=== PATIENT | male | born 1950 | race Caucasian/White ===

== ENCOUNTER 2017-07-29 14:46 | Inpatient (IN) | payer OTHER ==
[2017-07-29] MEDS ORDERED: NA CHLORIDE 0.9% 2,000 ML ONE (15:58)
[2017-07-29] MEDS ORDERED: ACETAMINOPHEN 500 MG TAB ONE (16:09)
[2017-07-29 16:10] LABS: Absolute Lymphocytes (CBC) 1.4 K/uL (0.7-4.9); Absolute Monocytes 0.6 K/uL (0.1-1.3); Absolute Neutrophil 4.7 K/uL (1.8-8.0); Basophils % 0.7 % (0-1.3); Eosinophils % 1.6 % (0-4.4); Hematocrit 41.1 % (39.6-49.0); Lymphocytes % 20.4 % (15.3-44.8); MCH 29.6 pg (27.0-35.0); MCV 88.5 fL (80-100); MPV 8.4 fL (7.6-11.3); Monocytes % 8.4 % (3.3-12.3); RBC Red Blood Cell Count 4.64 M/uL (4.33-5.43)
[2017-07-29 16:14] LABS: Protime INR 0.97
--- NOTE | 2017-07-29 16:22 | RAD REPORT ---
EXAM DESCRIPTION: RAD - Chest Single View - 07/29/2017 4:17 pm CLINICAL HISTORY: Syncope, possible heat exhaustion COMPARISON: None. TECHNIQUE: AP portable chest image was obtained 1609 hours . FINDINGS: Lungs are clear. Heart and vasculature are normal. No measurable pleural effusion and no p neumothorax. No gross bony abnormality seen. No acute aortic findings suspected. IMPRESSION: No acute cardiopulmonary process.
[2017-07-29 16:24] LABS: Albumin 3.7 g/dL (3.2-5.5); Bilirubin Direct 0.1 mg/dL (0-0.2); Bilirubin Total 0.5 mg/dL (0.3-1.2); Protein, Total 6.8 g/dL (6.0-8.3)
[2017-07-29 16:28] LABS: CKMB Creatine Kinase MB 2.1 ng/ml (0.3-4.0)
--- NOTE | 2017-07-29 16:52 | RAD REPORT ---
EXAM DESCRIPTION: CT - Head Brain Wo Cont - 07/29/2017 4:27 pm CLINICAL HISTORY: Syncope, possible heat exhaustion COMPARISON: None. TECHNIQUE: Axial 5 mm thick images of the head were obtained without IV contrast. All CT scans are performed using dose optimization technique as appropriate and may include automated exposure control or mA/KV adjustment according to patient size. FINDINGS: No intracranial hemorrhage, mass, edema or shift of mid-line structures. No acute infarcti on changes seen. No abnormal extra-axial fluid collections. Ventricles are normal. Arterial and physi ologic calcifications are present. Punctate calcification in the right parietal lobe probably from ol d infection. Patient has atrophy and chronic ischemic change. Ventricles are in proportion to volume loss. Round hyperdensity in the right posterior cranial fossa (image /) is believed be part of misty ous sinus and not a mass. Mastoid air cells and visualized portions of the paranasal sinuses are clear. No acute bony findings. IMPRESSION: Mild atrophy and chronic ischemic change. No acute intracranial finding.
--- NOTE | 2017-07-29 17:00 | EKG ---
Test Date: 2017-07-29 Test Time: 15:40:08 Ssis Architect: KLAUDIA MEASUREMENT RESULTS: Intervals: Rate: 78 GA: 146 QRSD: 90 QT: 376 QTc: 428 [place]: P: 55 GA: 146 QRS: 5 T: 33 INTERPRETIVE STATEMENTS: Normal sinus rhythm Nonspecific T wave abnormality Abnormal ECG No previous ECG available for comparison Electronically Signed On 07-29-17 16:59:53 CDT by Navjot Goldstein
--- NOTE | 2017-07-29 17:13 | EDPHYS ---
Physician Documentation [facility] Name: Jarrett Oslulivan Sr Age: 67 yrs Sex: Male : 1950 Arrival Date: 07/29/2017 Time: 14:56 Bed 18 Private MD: ED Physician Hoang Welch HPI: 07/29 17:09 This 67 yrs old Male presents to ER via EMS with complaints of Near Syncope. merrick 17:09 The patient has experienced near-syncope, almost passed out, felt dizzy, felt generally merrick weak. Onset: The symptoms/episode began/occurred just prior to arrival. Duration: The patient has had multiple episodes, that last 5 second(s). Context: the episode(s) was witnessed, by co-worker(s), occurred at home. Associated injury: The patient did not suffer any apparent associated injury. Associated signs and symptoms: Pertinent positives: dizziness, headache, weakness. Current symptoms: headache. The patient has not experienced similar symptoms in the past. Historical: - Allergies: 15:10 No Known Allergies; ae1 - Home Meds: 15:10 Plavix 75 mg Oral tab 1 tab once daily [Active]; gabapentin 400 mg oral cap 1 cap 3 ae1 times per day [Active]; atorvastatin 40 mg oral tab 1 tab once daily [Active]; amlodipine 10 mg tab 1 tab once daily [Active]; amitriptyline 25 mg Oral tab 1 tab once daily [Active]; Isosorbide Mononitrate Oral [Active]; ropinirole 3 mg oral tab 1 tab q day [Active]; - PMHx: 15:10 Hyperlipidemia; Hypertension; ae1 - Immunization history:: Flu vaccine is up to date. - Social history:: Smoking status: Patient/guardian denies using tobacco. - Ebola Screening: : Patient denies travel to an Ebola-affected area in the 21 days before illness onset. ROS: 17:09 Constitutional: Negative for fever, chills, and weight loss, Eyes: Negative for injury, merrick pain, redness, and discharge, ENT: Negative for injury, pain, and discharge, Neck: Negative for injury, pain, and swelling, Cardiovascular: Negative for chest pain, palpitations, and edema, Respiratory: Negative for shortness of breath, cough, wheezing, and pleuritic chest pain, Abdomen/GI: Negative for abdominal pain, nausea, vomiting, diarrhea, and constipation, Back: Negative for injury and pain, : Negative for injury, bleeding, discharge, and swelling, MS/Extremity: Negative for injury and deformity, Skin: Negative for injury, rash, and discoloration, Neuro: Negative for headache, weakness, numbness, tingling, and seizure, Psych: Negative for depression, anxiety, suicide ideation, homicidal ideation, and hallucinations, Allergy/Immunology: Negative for hives, rash, and allergies, Endocrine: Negative for neck swelling, polydipsia, polyuria, polyphagia, and marked weight changes, Hematologic/Lymphatic: Negative for swollen nodes, abnormal bleeding, and unusual bruising. Exam: 17:09 Constitutional: This is a well developed, well nourished patient who is awake, alert, merrick and in no acute distress. Head/Face: Normocephalic, atraumatic. Eyes: Pupils equal round and reactive to light, extra-ocular motions intact. Lids and lashes normal. Conjunctiva and sclera are non-icteric and not injected. Cornea within normal limits. Periorbital areas with no swelling, redness, or edema. ENT: Nares patent. No nasal discharge, no septal abnormalities noted. Tympanic membranes are normal and external auditory canals are clear. Oropharynx with no redness, swelling, or masses, exudates, or evidence of obstruction, uvula midline. Mucous membranes moist. Neck: Trachea midline, no thyromegaly or masses palpated, and no cervical lymphadenopathy. Supple, full range of motion without nuchal rigidity, or vertebral point tenderness. No Meningismus. Chest/axilla: Normal chest wall appearance and motion. Nontender with no deformity. No lesions are appreciated. Cardiovascular: Regular rate and rhythm with a normal S1 and S2. No gallops, murmurs, or rubs. Normal PMI, no JVD. No pulse deficits. Respiratory: Lungs have equal breath sounds bilaterally, clear to auscultation and percussion. No rales, rhonchi or wheezes noted. No increased work of breathing, no retractions or nasal flaring. Abdomen/GI: Soft, non-tender, with normal bowel sounds. No distension or tympany. No guarding or rebound. No evidence of tenderness throughout. Back: No spinal tenderness. No costovertebral tenderness. Full range of motion. Skin: Warm, dry with normal turgor. Normal color with no rashes, no lesions, and no evidence of cellulitis. MS/ Extremity: Pulses equal, no cyanosis. Neurovascular intact. Full, normal range of motion. Neuro: Awake and alert, GCS 15, oriented to person, place, time, and situation. Cranial nerves II-XII grossly intact. Motor strength 5/5 in all extremities. Sensory grossly intact. Cerebellar exam normal. Normal gait. Psych: Awake, alert, with orientation to person, place and time. Behavior, mood, and affect are within normal limits. 17:09 : CVA tenderness, is absent, Male external genitalia: normal, Bladder: is normal. Vital Signs: 14:56 BP 148 / 78; Pulse 86; Resp 19; Pulse Ox 96% on R/A; Weight 102.97 kg (R); Pain 6/10; ae1 15:29 Temp 98.3(O); ae1 16:57 BP 151 / 75; Pulse 74; Resp 21; Pulse Ox 100% on R/A; ae1 18:51 BP 163 / 92; Pulse 72; Resp 16; Pulse Ox 99% on R/A; ae1 19:25 BP 171 / 89; Pulse 69; Resp 18; Pulse Ox 99% ; ea 20:35 BP 157 / 90; Pulse 67; Resp 18; Pulse Ox 99% on R/A; Pain 0/10; ea 21:26 BP 144 / 71; Pulse 72; Resp 18; Temp 98(O); Pulse Ox 99% on R/A; Pain 0/10; ea MDM: 14:59 Patient medically screened. [facility] 17:09 Data reviewed: vital signs, nurses notes, lab test result(s), EKG, radiologic studies, [facility] CT scan, plain films. 07/29 15:35 Order name: Basic Metabolic Panel; Complete Time: 17:20 ae1 07/29 15:35 Order name: BNP; Complete Time: 17:20 ae1 07/29 15:35 Order name: CBC with Diff; Complete Time: 17:20 ae1 07/29 15:35 Order name: Ckmb; Complete Time: 17:20 ae1 07/29 15:35 Order name: CPK; Complete Time: 17:20 ae1 07/29 15:35 Order name: LFT's; Complete Time: 17:20 ae1 07/29 15:35 Order name: Magnesium; Complete Time: 17:20 ae07/29 15:35 Order name: PT-INR; Complete Time: 17:20 07/29 15:35 Order name: Ptt, Activated; Complete Time: 17:20 ae07/29 15:35 Order name: Troponin (emerg Dept Use Only); Complete Time: 17:20 07/29 15:35 Order name: XRAY Chest (1 view); Complete Time: 17:20 ae07/29 15:54 Order name: CT Head Brain wo Cont; Complete Time: 17:20 iw 07/29 18:48 Order name: Urine Dipstick--Ancillary (enter results) bd 07/29 19:05 Order name: EDPA 07/29 15:35 Order name: EKG; Complete Time: 15:36 07/29 15:35 Order name: Cardiac monitoring; Complete Time: 15:35 07/29 15:35 Order name: EKG - Nurse/Tech; Complete Time: 16:02 ae07/29 15:35 Order name: IV Saline Lock; Complete Time: 15:35 07/29 15:35 Order name: Labs collected and sent; Complete Time: 16:02 07/29 15:35 Order name: O2 Per Protocol; Complete Time: 15:35 07/29 15:35 Order name: O2 Sat Monitoring; Complete Time: 15:35 07/29 15:35 Order name: Urine Dipstick-Ancillary (obtain specimen); Complete Time: 18:51 07/29 17:18 Order name: CONS Physician Consult EDPA Administered Medications: 16:01 Drug: NS 0.9% 1000 ml Route: IV; Rate: 1 bolus; Site: right antecubital; ae1 18:19 Follow up: IV Status: Completed infusion ae1 16:02 Drug: NS 0.9% 1000 ml Route: IV; Rate: 1 bolus; Site: right antecubital; ae1 18:19 Follow up: IV Status: Completed infusion ae1 16:12 Drug: Tylenol 1000 mg Route: PO; ae1 18:19 Follow up: Response: Pain is decreased ae1 Point of Care Testing: Blood Glucose: 15:29 Blood Glucose: 105 mg/dL; ae1 Ranges: Critical Glucose Levels:Adult <50 mg/dl or >400 mg/dl <40 mg/dl or >180 mg/dl Disposition: 07/29/17 17:12 Hospitalization ordered by Joe Boogie for Observation. Preliminary diagnosis is Syncope and collapse. - Bed requested for Telemetry/MedSurg (observation). - Status is Observation. ea - Condition is Fair. - Problem is new. - Symptoms have improved. UTI on Admission? No Signatures: Dispatcher [employer] EDCourtney Miles RN RN kl Anderson, Corey, MD MD cha Elliott, Andrea, RN RN ae1 Laxmi Mcdonald RN RN ea Corrections: (The following items were deleted from the chart) 19:25 17:12 Hospitalization Ordered by Joe Boogie DO for Observation. Preliminary diagnosis is Syncope and collapse. Bed requested for Telemetry/MedSurg (observation). Status is Observation. Condition is Fair. Problem is new. Symptoms have improved. UTI on Admission? No. merrick 21:28 19:25 07/29/2017 17:12 Hospitalization Ordered by Joe Boogie DO for Observation. ea Preliminary diagnosis is Syncope and collapse. Bed requested for Telemetry/MedSurg (observation). Status is Observation. Condition is Fair. Problem is new. Symptoms have improved. UTI on Admission? No. zoya
--- NOTE | 2017-07-29 17:13 | ER ---
Nurse's Notes 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 No LOC and denies striking head. Patient reports a headache. Transition of care: patient was not received from another setting of care. Onset of symptoms was July 29, 2017 at 14:00. Risk Assessment: Do you want to hurt yourself or someone else? Patient reports no desire to harm self or others. Initial Sepsis Screen: Does the patient meet any 2 criteria? No. Patient's initial sepsis screen is negative. Does the patient have a suspected source of infection? No. Patient's initial sepsis screen is negative. Care prior to arrival: IV initiated. 20 GA, in the right antecubital area. 15:00 Method Of Arrival: EMS: [facility] ae1 15:00 Acuity: PADMINI 3 ae1 Triage Assessment: 15:00 General: Appears in no apparent distress. uncomfortable, Behavior is cooperative, ae1 anxious. Pain: Complains of pain in head and back of head Pain currently is 3 out of 10 on a pain scale. at worst was 8 out of 10 on a pain scale. EENT: wears glasses. Neuro: Level of Consciousness is awake, alert, obeys commands, Oriented to person, place, time, situation. Cardiovascular: Heart tones S1 S2 present. Respiratory: Reports shortness of breath on exertion Airway is patent Respiratory effort is even, unlabored, Respiratory pattern is regular, symmetrical, Breath sounds are clear bilaterally. GI: Abdomen is round Bowel sounds present X 4 quads. : No signs and/or symptoms were reported regarding the genitourinary system. Urine is clear, amberly urine. Derm: Skin is clammy, diaphoretic, Skin is pale. Musculoskeletal: No signs and/or symptoms reported regarding the musculoskeletal system. Historical: - Allergies: 15:10 No Known Allergies; ae1 - Home Meds: 15:10 Plavix 75 mg Oral tab 1 tab once daily [Active]; gabapentin 400 mg oral cap 1 cap 3 ae1 times per day [Active]; atorvastatin 40 mg oral tab 1 tab once daily [Active]; amlodipine 10 mg tab 1 tab once daily [Active]; amitriptyline 25 mg Oral tab 1 tab once daily [Active]; Isosorbide Mononitrate Oral [Active]; ropinirole 3 mg oral tab 1 tab q day [Active]; - PMHx: 15:10 Hyperlipidemia; Hypertension; ae1 - Immunization history:: Flu vaccine is up to date. - Social history:: Smoking status: Patient/guardian denies using tobacco. - Ebola Screening: : Patient denies travel to an Ebola-affected area in the 21 days before illness onset. Screenin:25 Abuse screen: Denies threats or abuse. Denies injuries from another. Nutritional ae1 screening: No deficits noted. Tuberculosis screening: No symptoms or risk factors identified. Fall Risk Fall in past 12 months (25 points). No secondary diagnosis (0 pts). IV access (20 points). Ambulatory Aid- None/Bed Rest/Nurse Assist (0 pts). Gait- Normal/Bed Rest/Wheelchair (0 pts) Mental Status- Oriented to own ability (0 pts). Assessment: 18:51 Reassessment: Patient appears in no apparent distress at this time. Patient denies pain ae1 at this time. Patient states feeling better. Patient states symptoms have improved. 19:24 Reassessment: Patient appears in no apparent distress at this time. Patient and/or ae1 family updated on plan of care and expected duration. Pain level reassessed. Patient states symptoms have improved. Pain: Denies pain. 19:25 General: Appears in no apparent distress. Behavior is calm, cooperative, appropriate ea for age. Pain: Denies pain. Neuro: Level of Consciousness is awake, alert, obeys commands, Oriented to person, place, time, situation. Cardiovascular: Heart tones S1 S2 present Patient's skin is warm and dry. Respiratory: Airway is patent Respiratory effort is even, unlabored, Respiratory pattern is regular, symmetrical, Breath sounds are clear bilaterally. GI: No signs and/or symptoms were reported involving the gastrointestinal system. : No signs and/or symptoms were reported regarding the genitourinary system. EENT: No signs and/or symptoms were reported regarding the EENT system. Derm: Skin is pink, warm \\T\\ dry. Musculoskeletal: No signs and/or symptoms reported regarding the musculoskeletal system. 20:55 Reassessment: Patient and/or family updated on plan of care and expected duration. Pain ea level reassessed. Patient denies pain at this time. Patient states feeling better. Patient states symptoms have improved. 21:25 Reassessment: Patient and/or family updated on plan of care and expected duration. Pain ea level reassessed. Report given to Lilo DARLING on second floor. Patient denies pain at this time. Patient states feeling better. Patient states symptoms have improved. Vital Signs: 14:56 BP 148 / 78; Pulse 86; Resp 19; Pulse Ox 96% on R/A; Weight 102.97 kg (R); Pain 6/10; ae1 15:29 Temp 98.3(O); ae1 16:57 BP 151 / 75; Pulse 74; Resp 21; Pulse Ox 100% on R/A; ae1 18:51 BP 163 / 92; Pulse 72; Resp 16; Pulse Ox 99% on R/A; ae1 19:25 BP 171 / 89; Pulse 69; Resp 18; Pulse Ox 99% ; ea 20:35 BP 157 / 90; Pulse 67; Resp 18; Pulse Ox 99% on R/A; Pain 0/10; ea 21:26 BP 144 / 71; Pulse 72; Resp 18; Temp 98(O); Pulse Ox 99% on R/A; Pain 0/10; ea ED Course: 14:56 Patient arrived in ED. ae1 14:59 Hoang Welch MD is Attending Physician. merrick 15:04 Triage completed. ae1 15:04 Placed in gown. Bed in low position. Call light in reach. Side rails up X2. Cardiac ae1 monitor on. Pulse ox on. NIBP on. 15:04 Arm band placed on right wrist. ae1 15:29 Sandip Dickey, PHONG is Primary Nurse. ae1 15:30 EKG completed in triage. Results shown to . ae1 15:45 EKG done, by paintless dent repair technician. reviewed by Hoang Welch MD. at1 16:[address] oh 16:15 X-ray completed. Portable x-ray completed in exam room. Patient tolerated procedure kc2 well. 16:16 XRAY Chest (1 view) In Process Unspecified. EDMS 16:27 CT Head Brain wo Cont In Process Unspecified. EDMS 17:12 Joe Boogie DO is Hospitalizing Provider. [facility] 20:05 No provider procedures requiring assistance completed. Patient admitted, IV remains in ea place. 20:23 Primary Nurse role handed off by Sandip Dickey, RN rg2 21:25 Laxmi Mcdonald, PHONG is Primary Nurse. ea Administered Medications: 16:01 Drug: NS 0.9% 1000 ml Route: IV; Rate: 1 bolus; Site: right antecubital; ae1 18:19 Follow up: IV Status: Completed infusion ae1 16:02 Drug: NS 0.9% 1000 ml Route: IV; Rate: 1 bolus; Site: right antecubital; ae1 18:19 Follow up: IV Status: Completed infusion ae1 16:12 Drug: Tylenol 1000 mg Route: PO; ae1 18:19 Follow up: Response: Pain is decreased ae1 Point of Care Testing: Blood Glucose: 15:29 Blood Glucose: 105 mg/dL; ae1 Ranges: Output: 19:06 Urine: 300ml (Voided); Total: 300ml. ae1 Outcome: 17:12 Decision to Hospitalize by Provider. merrick 20:05 Instructed on the need for admit. ea 21:27 Admitted to Med/surg accompanied by tech, via stretcher, with chart, Report called to leigh ann Nagy RN 21:27 Condition: stable 21:28 Patient left the ED. ea Signatures: Dispatcher [employer] EDMS Heather Villagomez rg2 Hoang Welch MD MD cha gonzales, Amanda, onboarding specialist EKG Tat1 Sara Craig kc2 Sandip Dickey, RN RN ae1 Mathieu Weston Elena, PHONG DARLING ea
[2017-07-29] MEDS ORDERED: ONDANSETRON 4 MG/2 ML VIAL IV PRN (17:55)
[2017-07-29] MEDS: NA CHLORIDE 0.9% 1,000 ML IV SCH ×2 (18:00→22:09)
--- NOTE | 2017-07-29 18:07 | P.HP ---
Certification for Inpatient Patient admitted to: Observation With expected LOS: <2 Midnights Patient will require the following post-hospital care: None Practitioner: I am a practitioner with admitting privileges, knowledge of patient current condition, hospital course, and medical plan of care. Services: Services provided to patient in accordance with Admission requirements found in Title 42 Section 412.3 of the Code of Federal Regulations Patient History Date of Service: 07/29/17 Primary Care Provider: Natalie Croft([place]); Cardiology-Dr. Nagy Reason for admission: Near syncope History of Present Illness: 67-year-old male presented emergency room with a near syncopal episode. 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 He has been trying to hydrate. He apparently went to a local [employer] store. While at the store he felt lightheaded and almost passed out. After that time he came to the emergent room to get evaluated. He did report some chest pain in the emergency room. He denied any significant shortness of breath. No nausea or vomiting noted. In the ER patient evaluated. Blood pressure stable. CBC unremarkable. Sodium 141, potassium 4.0. CK of 271. Troponin less than 0.03, creatinine 1.08 with a GFR 68. Glucose 122. CT of the head unremarkable for any acute changes. Chest x-ray also unremarkable. Patient was given IV fluids urgency room. The patient will be admitted for observation. When I saw the patient ER, he appeared stable. Family at bedside. He denied any significant chest pain at that time. Patient with history of CAD, hyperlipidemia, hypertension. Patient reports that this is happen in the past whenever he gets severely dehydrated. Home medications list reviewed: Yes - Past Medical/Surgical History Diabetic: No -: Hypertension -: Hyperlipidemia -: CAD -: Neck surgery Psychosocial/ Personal History: The patient is . He has several children. - Family History Father -: Heart disease Mother -: Heart disease, Diabetes - Social History Smoking Status: Never smoker Alcohol use: No CD- Drugs: No Caffeine use: Yes Place of Residence: Home Review of Systems General: Weakness, Malaise, As per HPI Eyes: Unremarkable ENT: Unremarkable Respiratory: Unremarkable Cardiovascular: Chest Pain, As per HPI Gastrointestinal: Unremarkable Genitourinary: Unremarkable Musculoskeletal: Unremarkable Integumentary: Unremarkable Neurological: As per HPI Lymphatics: Unremarkable Physical Examination - Physical Exam General: Alert, In no apparent distress, Oriented x3, Cooperative HEENT: Atraumatic, Normocephalic, PERRLA, Other (Dry mucous membranes) Neck: Supple, No Thyromegaly Respiratory: Clear to auscultation bilaterally, Normal air movement Cardiovascular: Normal pulses, Regular rate/rhythm Gastrointestinal: Normal bowel sounds, Soft and benign, Non-distended, No tenderness, No masses, No rebound, No guarding Musculoskeletal: No erythema, No tenderness, No warmth Integumentary: No tenderness/swelling, No erythema, No warmth, No cyanosis Neurological: Normal speech, Normal strength at 5/5 x4 extr, Normal tone, Normal affect Lymphatics: No axilla or inguinal lymphadenopathy - Studies Laboratory Data (last 24 hrs) 07/29/17 15:25: PT 11.5, INR 0.97, APTT 28.0 07/29/17 15:25: WBC 6.9, Hgb 13.7, Hct 41.1, Plt Count 177 07/29/17 15:25: B-Natriuretic Peptide 11 07/29/17 15:25: Sodium 141, Potassium 4.0, BUN 17, Creatinine 1.08, Glucose 122 H, Magnesium 2.0, Total Bilirubin 0.5, AST 20, ALT 19, Alkaline Phosphatase 68 Assessment and Plan - Problems (Diagnosis) (1) Near syncope Current Visit: Yes Status: Acute Plan: Suspect related to dehydration and heat exhaustion. Patient given IV fluids. Will continue with IV fluids and monitor closely. Will monitor cardiac enzymes as the patient reported some chest pain. He is without chest pain at this time. Patient with history of hypertension and CAD. Will consult cardiology to further evaluate. Will also order echocardiogram and carotid Doppler. Will monitor cardiac enzymes. (2) Dehydration Current Visit: Yes Status: Acute Plan: Continue with IV fluids. Will monitor electrolyte (3) Heat exhaustion Current Visit: Yes Status: Acute Plan: Continue with IV fluids. Qualifiers: Encounter type: initial encounter Qualified Code(s): T67.5XXA - Heat exhaustion, unspecified, initial encounter (4) Hypertension Current Visit: Yes Status: Chronic Plan: Continue with home medication. Qualifiers: Hypertension type: essential hypertension Qualified Code(s): I10 - Essential (primary) hypertension (5) Hyperlipidemia Current Visit: Yes Status: Chronic Plan: Continue with home medication Qualifiers: Hyperlipidemia type: unspecified Qualified Code(s): E78.5 - Hyperlipidemia , unspecified (6) CAD (coronary artery disease) Current Visit: Yes Status: Chronic Plan: Continue as above. (7) Chest pain Current Visit: Yes Status: Acute Plan: Chest pain was brief. He is without chest pain at this time. Will continue as above. Cardiology consulted. Qualifiers: Chest pain type: unspecified Qualified Code(s): R07.9 - Chest pain, unspecified Discharge Plan: Home Plan to discharge in: 24 Hours - Advance Directives Does patient have a Living Will: No Does patient have a Durable POA for Healthcare: No - Code Status/Comfort Care Code Status Assessed: Yes Time Spent Managing Pts Care (In Minutes): 55
--- NOTE | 2017-07-29 19:05 | RAD REPORT ---
EXAM DESCRIPTION: SAMIRA - ELISA - 07/29/2017 6:54 pm CLINICAL HISTORY: Syncope COMPARISON: None. TECHNIQUE: Real-time sonographic evaluation of both carotid systems was performed. Doppler interroga tion was performed with waveform tracing bilaterally. FINDINGS: Normal high resistance waveforms are noted in both external carotid arteries. The common c arotid arteries and internal carotid arteries show normal low resistance waveforms. The right mid common carotid artery demonstrates soft and hard plaque. The left common carotid artery demonstrates mild soft plaque. The proximal right ICA demonstrates hard plaque with a peak systolic velocity of a maximum of 171 cm/second. The left internal carotid artery demonstrates prominent hard plaque with mildly elevated peak systolic velocity measurement of 135 cm/second. Right ICA to CCA rat io is 3.6. Left ICA CCA ratio is 1.5. Antegrade flow seen in both vertebral arteries. IMPRESSION: Moderate bilateral carotid system plaquing. Moderate stenosis involving the proximal right ICA estimated at 50-70%. MR angiography of the neck vessels may be of value for further assessment.
[2017-07-29] MEDS ORDERED: ATORVASTATIN 40 MG TAB PO SCH (21:00)
[2017-07-29] MEDS: ENOXAPARIN 40 MG/0.4 ML SQ SCH (22:09)
[2017-07-30 02:32] LABS: CKMB Creatine Kinase MB 1.6 ng/ml (0.3-4.0)
[2017-07-30] MEDS: ACETAMINOPHEN 500 MG TAB PO PRN ×2 (03:29→13:27)
[2017-07-30] MEDS: NA CHLORIDE 0.9% 1,000 ML IV SCH ×3 (03:29→20:40)
[2017-07-30 03:59] LABS: Urine Appearance CLEAR; Urine Bilirubin NEGATIVE (NEG); Urine Blood NEGATIVE (NEG); Urine Color YELLOW; Urine Glucose NEGATIVE (NEG); Urine Protein NEGATIVE (NEG); Urine Specific Gravity 1.025 (1.005-1.030)
[2017-07-30 04:09] LABS: Urine Microscopic Reflex NO UMIC
[2017-07-30 06:38] LABS: Absolute Lymphocytes (CBC) 1.8 K/uL (0.7-4.9); Absolute Monocytes 0.6 K/uL (0.1-1.3); Absolute Neutrophil 4.3 K/uL (1.8-8.0); Basophils % 0.5 % (0-1.3); Eosinophils % 2.4 % (0-4.4); Hematocrit 39.3 % (39.6-49.0); Lymphocytes % 25.7 % (15.3-44.8); MCH 29.8 pg (27.0-35.0); MCV 89.3 fL (80-100); MPV 8.8 fL (7.6-11.3); Monocytes % 8.4 % (3.3-12.3)
[2017-07-30 07:19] LABS: Magnesium 1.8 mg/dL (1.8-2.5); Potassium 4.1 mEq/L (3.6-5.0); Thyroid Stimulating Hormone 2.71 uIU/mL (0.34-5.60)
[2017-07-30] MEDS ORDERED: MAGNESIUM SULFATE 1 gm IVPB 1 GM/100 ML BAG IV ONE (08:00)
[2017-07-30] MEDS: ENOXAPARIN 40 MG/0.4 ML SQ SCH (08:23)
[2017-07-30] MEDS: ISOSORBIDE MONO SR 30 MG TAB PO SCH (08:23)
[2017-07-30] MEDS: PANTOPRAZOLE 40MG TABLET PO SCH (08:23)
[2017-07-30] MEDS ORDERED: AMLODIPINE 5 MG TAB PO SCH (09:00)
[2017-07-30] MEDS ORDERED: CLOPIDOGREL 75 MG TABLET PO SCH (09:00)
--- NOTE | 2017-07-30 10:45 | P.DS ---
Admission Date: 07/29/17 Discharge Date: 07/30/17 Primary Care Provider: Natalie Croft([place]); Cardiology-Dr. Nagy Disposition: ROUTINE DISCHARGE Discharge Condition: GOOD Reason for Admission: Near syncope Consultations: Cardiology-Dr. Orr Procedures: MRI/MRA brain: Carotid Doppler: FINDINGS: Normal high resistance waveforms are noted in both external carotid arteries. The common carotid arteries and internal carotid arteries show normal low resistance waveforms. The right mid common carotid artery demonstrates soft and hard plaque. The left common carotid artery demonstrates mild soft plaque. The proximal right ICA demonstrates hard plaque with a peak systolic velocity of a maximum of 171 cm/ second. The left internal carotid artery demonstrates prominent hard plaque with mildly elevated peak systolic velocity measurement of 135 cm/second. Right ICA to CCA ratio is 3.6. Left ICA CCA ratio is 1.5. Antegrade flow seen in both vertebral arteries. IMPRESSION: Moderate bilateral carotid system plaquing. Moderate stenosis involving the proximal right ICA estimated at 50-70%. - Problems (1) Near syncope Onset Date: 07/30/17 Current Visit: Yes Status: Acute (2) Dehydration Onset Date: 07/30/17 Current Visit: Yes Status: Acute (3) Heat exhaustion Onset Date: 07/30/17 Current Visit: Yes Status: Acute Qualifiers: Encounter type: initial encounter Qualified Code(s): T67.5XXA - Heat exhaustion, unspecified, initial encounter (4) Hypertension Onset Date: 07/30/17 Current Visit: Yes Status: Chronic Qualifiers: Hypertension type: essential hypertension Qualified Code(s): I10 - Essential (primary) hypertension (5) Hyperlipidemia Onset Date: 07/30/17 Current Visit: Yes Status: Chronic Qualifiers: Hyperlipidemia type: unspecified Qualified Code(s): E78.5 - Hyperlipidemia , unspecified (6) CAD (coronary artery disease) Onset Date: 07/30/17 Current Visit: Yes Status: Chronic Qualifiers: Coronary Disease-Associated Artery/Lesion type: unspecified vessel or lesion type [place] vs. transplanted heart: unspecified whether [place] or transplanted heart Associated angina: angina presence unspecified Qualified Code(s): I25.10 - Atherosclerotic heart disease of [place] coronary artery without angina pectoris (7) Chest pain Onset Date: 07/30/17 Current Visit: Yes Status: Acute Qualifiers: Chest pain type: unspecified Qualified Code(s): R07.9 - Chest pain, unspecified (8) Carotid arterial disease Current Visit: Yes Status: Acute Qualifiers: Laterality: right Qualified Code(s): I77.9 - Disorder of arteries and arterioles, unspecified (9) Neuropathy Current Visit: Yes Status: Chronic Brief History of Present Illness: 67-year-old male presented emergency room with a near syncopal episode. 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 He has been trying to hydrate. He apparently went to a local [employer] store. While at the store he felt lightheaded and almost passed out. After that time he came to the emergent room to get evaluated. He did report some chest pain in the emergency room. He denied any significant shortness of breath. No nausea or vomiting noted. In the ER patient evaluated. Blood pressure stable. CBC unremarkable. Sodium 141, potassium 4.0. CK of 271. Troponin less than 0.03, creatinine 1.08 with a GFR 68. Glucose 122. CT of the head unremarkable for any acute changes. Chest x-ray also unremarkable. Patient was given IV fluids urgency room. The patient will be admitted for observation. When I saw the patient ER, he appeared stable. Family at bedside. He denied any significant chest pain at that time. Patient with history of CAD, hyperlipidemia, hypertension. Patient reports that this is happen in the past whenever he gets severely dehydrated. Hospital Course: Patient did well in the course of his stay. Patient had no further near syncopal episode. This was likely from dehydration. Patient received IV fluids. Patient also evaluated by Cardiology. No cardiac intervention was needed. Carotid Doppler showed proximal right ICA stenosis about 50-70%. No intervention is needed at this time. Recommendations for the patient follow up with cardiology to further monitor. If this worsens patient may require intervention. MRI/MRA brain done. This was unremarkable. At discharge patient will continue with Plavix 75 mg 1 pill once daily and aspirin 81 mg daily. Recommendation is the patient to limit physical activities outside especially when heat is elevated. Patient has hypertension. This remained stable. Patient will continue with his medication-Norvasc 10 mg daily. Recommendation is to maintain blood pressures less 150/80. Further adjustment can be done by his PCP. Patient has hyperlipidemia. This remained stable. Patient will continue with his medication-Lipitor 40 mg 1 pill daily. Patient has a history of CAD. Patient will continue with Imdur 30 mg daily. Patient with history of neuropathy and restless leg syndrome. He will continue with his medications including Elavil, Neurontin and Requip. Vital Signs/Physical Exam: Temp Pulse Resp BP Pulse Ox 98.1 F 66 16 162/79 H 97 07/30/17 08:00 07/30/17 08:00 07/30/17 08:00 07/30/17 08:00 07/30/17 08:00 General: Alert, In no apparent distress, Oriented x3, Cooperative HEENT: Atraumatic, Mucous membr. moist/pink Neck: Supple Respiratory: Clear to auscultation bilaterally, Normal air movement Cardiovascular: Normal pulses, Regular rate/rhythm Gastrointestinal: Normal bowel sounds, Soft and benign, Non-distended, No tenderness, No masses, No rebound, No guarding Musculoskeletal: No erythema, No tenderness, No warmth Integumentary: No tenderness/swelling, No erythema, No warmth, No cyanosis Neurological: Normal speech, Normal strength at 5/5 x4 extr, Normal tone, Normal affect Lymphatics: No axilla or inguinal lymphadenopathy Laboratory Data at Discharge: WBC 6.8 K/uL (4.3-10.9) 07/30/17 05:48 Hgb 13.1 g/dL (13.6-17.9) L 07/30/17 05:48 Hct 39.3 % (39.6-49.0) L 07/30/17 05:48 Plt Count 181 K/uL (152-406) 07/30/17 05:48 PT 11.5 SECONDS (9.5-12.5) 07/29/17 15:25 INR 0.97 07/29/17 15:25 APTT 28.0 SECONDS (24.3-36.9) 07/29/17 15:25 Sodium 141 mEq/L (135-145) 07/30/17 05:48 Potassium 4.1 mEq/L (3.6-5.0) 07/30/17 05:48 BUN 12 mg/dL (6-20) 07/30/17 05:48 Creatinine 0.91 mg/dL (0.61-1.24) 07/30/17 05:48 Glucose 97 mg/dL (65-120) 07/30/17 05:48 Magnesium 1.8 mg/dL (1.8-2.5) 07/30/17 05:48 Total Bilirubin 0.5 mg/dL (0.3-1.2) 07/29/17 15:25 AST 20 IU/L (10-42) 07/29/17 15:25 ALT 19 IU/L (10-60) 07/29/17 15:25 Alkaline Phosphatase 68 IU/L (42-121) 07/29/17 15:25 Troponin I < 0.03 ng/mL (<0.03) 07/30/17 01:31 B-Natriuretic Peptide 11 pg/ml (<=100) 07/29/17 15:25 Triglycerides 85 mg/dL (35-160) 07/30/17 05:48 Cholesterol 116 mg/dL (<200) 07/30/17 05:48 HDL Cholesterol 38 mg/dL (27-67) 07/30/17 05:48 Cholesterol/HDL Ratio 3.05 07/30/17 05:48 Home Medications: Amitriptyline [Elavil*] 25 mg PO DAILY 07/29/17 Amlodipine [Norvasc*] 10 mg PO DAILY 07/29/17 Aspirin [Melissa Chewable Aspirin] 1 tab PO DAILY 07/29/17 Atorvastatin Calcium 40 mg PO DAILY 07/29/17 Clopidogrel Bisulfate [Plavix*] 75 mg PO DAILY 07/29/17 Gabapentin [Neurontin*] 400 mg PO BID 07/29/17 Isosorbide Mononitrate [Isosorbide Mononitrate ER] 30 mg PO DAILY 07/29/17 Ropinirole HCl [Requip] 3 mg PO BEDTIME 07/29/17 Patient Discharge Instructions: 1. Patient will need to follow up his PCP in 1 week to follow up this hospitalization. 2. Patient did well in the course of his stay. Patient presented with near syncope and chest pain. This is likely from dehydration. Patient received IV fluids. Patient also evaluated by Cardiology. No cardiac intervention was needed. Carotid Doppler showed proximal right ICA stenosis about 50-70%. No intervention is needed at this time. Recommendations for the patient follow up with cardiology to further monitor. If this worsens patient may require intervention. MRI/MRA brain done. This was unremarkable. At discharge patient will continue with Plavix 75 mg 1 pill once daily and aspirin 81 mg daily. Recommendation is to decrease activities and remain hydrated. 3. Patient has hypertension. This remained stable. Patient will continue with his medication-Norvasc 10 mg daily. Recommendation is to maintain blood pressures less 150/80. Further adjustment can be done by his PCP. 4. Patient has hyperlipidemia. This remained stable. Patient will continue with his medication-Lipitor 40 mg 1 pill daily. 5. Patient has a history of CAD. Patient will continue with Imdur 30 mg daily. 6. Patient with history of neuropathy and restless leg syndrome. He will continue with his medications including Elavil, Neurontin and Requip. Diet: AHA Activity: Fall precautions Time spent managing pt's care (in minutes): 55
[2017-07-30 11:43] LABS: CKMB Creatine Kinase MB 1.7 ng/ml (0.3-4.0)
--- NOTE | 2017-07-30 12:34 | RAD REPORT ---
EXAM DESCRIPTION: MRI - Stroke Protocol - 07/30/2017 10:26 am CLINICAL HISTORY: CVA. COMPARISON: CT head 07/29/2017 TECHNIQUE: MRI of brain with diffusion-weighted imaging with contrast 3D [id number] non contrast MR angiography of the [place]. 2D [id number] post contrast MR angiography of the neck vessels. Approximately 20 cc of Magnevist contrast was administered during the study. FINDINGS: No intracranial hemorrhage, hydrocephalus or extra-axial fluid collection is seen. No midl ine shift. No intracranial mass lesion. Triangular area of diffusion restriction is seen in the right basal ganglia measuring 9 x 6 mm with r educed ADC mapping and mildly elevated FLAIR signal, compatible with small acute CVA. The midline structures are normally formed. Post-contrast imaging through the brain shows no abnormal enhancement to suggest tumor or infection. Small polyps or mucous retention cysts are present in both maxillary antra. MR angiography of the [place] shows no evidence of intracranial right ICA flow. There is buffy dence of supply to the right M1 segment via a patent right PCOM. Antegrade vertebral artery flow was present bilaterally. MR angiography of the neck vessels shows no significant flow in the right internal carotid artery dis felice to the bulb. This may be related to occlusion or slow flow. Significant stenosis is present at th e origin of the left internal carotid artery estimated at 80-90%. IMPRESSION: Acute nonhemorrhagic CVA right basal ganglia measuring 9 x 6 mm. Occlusion or significant slow flow in the right internal carotid artery distal to the bulb. Significant stenosis left carotid bulb estimated at 80-90%. Findings were discussed with Dr. Boogie at 12:30 p.m. 07/30/2017 by telephone.
--- NOTE | 2017-07-30 13:17 | P.PN ---
Subjective Date of Service: 07/30/17 Primary Care Provider: Natalie Croft([place]); Cardiology-Dr. Nagy Chief Complaint: Near syncope Subjective: Doing well Physical Examination - Vital Signs Temperature: 98.0 F Blood Pressure: 163/77 Pulse: 65 Respirations: 16 Pulse Ox (%): 97 - Physical Exam General: Alert, In no apparent distress, Oriented x3, Cooperative HEENT: Atraumatic Neck: Supple Respiratory: Clear to auscultation bilaterally, Normal air movement Cardiovascular: Normal pulses, Regular rate/rhythm Gastrointestinal: Normal bowel sounds, Soft and benign, Non-distended, No tenderness, No masses, No rebound, No guarding Musculoskeletal: No erythema, No tenderness, No warmth Integumentary: No tenderness/swelling, No erythema, No warmth, No cyanosis Neurological: Normal speech, Normal strength at 5/5 x4 extr, Normal tone, Normal affect Lymphatics: No axilla or inguinal lymphadenopathy - Studies Laboratory Data (last 24 hrs) 07/29/17 15:25: PT 11.5, INR 0.97, APTT 28.0 07/29/17 15:25: WBC 6.9, Hgb 13.7, Hct 41.1, Plt Count 177 07/29/17 15:25: B-Natriuretic Peptide 11 07/29/17 15:25: Sodium 141, Potassium 4.0, BUN 17, Creatinine 1.08, Glucose 122 H, Magnesium 2.0, Total Bilirubin 0.5, AST 20, ALT 19, Alkaline Phosphatase 68 Medications List Reviewed: Yes Assessment & Plan - Problems (Diagnosis) (1) Near syncope Onset Date: 07/30/17 Current Visit: Yes Status: Acute Plan: MRI shows acute nonhemorrhagic CVA to the right basal ganglia. Occlusion of the right internal carotid artery noted. Significant left stenosis to the left carotid at 80-90% noted. Case discussed with Neurology. Will continue aspirin. Will change Plavix to Brilinta. Will get CT angiogram of head and neck to further assess his condition. Will discuss with cardiology. Echocardiogram pending. (2) Dehydration Onset Date: 07/30/17 Current Visit: Yes Status: Acute Plan: Continue with IV fluids. Will monitor electrolyte (3) Heat exhaustion Onset Date: 07/30/17 Current Visit: Yes Status: Acute Plan: Continue with IV fluids. Qualifiers: Encounter type: initial encounter Qualified Code(s): T67.5XXA - Heat exhaustion, unspecified, initial encounter (4) Hypertension Onset Date: 07/30/17 Current Visit: Yes Status: Chronic Plan: Continue with home medication. Qualifiers: Hypertension type: essential hypertension Qualified Code(s): I10 - Essential (primary) hypertension (5) Hyperlipidemia Onset Date: 07/30/17 Current Visit: Yes Status: Chronic Plan: Continue with home medication Qualifiers: Hyperlipidemia type: unspecified Qualified Code(s): E78.5 - Hyperlipidemia , unspecified (6) CAD (coronary artery disease) Onset Date: 07/30/17 Current Visit: Yes Status: Chronic Plan: Continue as above. Qualifiers: Coronary Disease-Associated Artery/Lesion type: unspecified vessel or lesion type [place] vs. transplanted heart: unspecified whether [place] or transplanted heart Associated angina: angina presence unspecified Qualified Code(s): I25.10 - Atherosclerotic heart disease of [place] coronary artery without angina pectoris (7) Chest pain Onset Date: 07/30/17 Current Visit: Yes Status: Acute Plan: Chest pain was brief. He is without chest pain at this time. Will continue as above. Cardiology consulted. Qualifiers: Chest pain type: unspecified Qualified Code(s): R07.9 - Chest pain, unspecified (8) Carotid arterial disease Current Visit: Yes Status: Acute Plan: Continue as above. Will check CT angiogram to further evaluate. Qualifiers: Laterality: right Qualified Code(s): I77.9 - Disorder of arteries and arterioles, unspecified (9) Neuropathy Current Visit: Yes Status: Chronic (10) CVA (cerebral vascular accident) Current Visit: Yes Status: Acute Plan: MRI reviewed. Will order CT angiogram to further assess. Case discussed with Neurology. Will adjust medications. Qualifiers: Laterality of affected vessel: right Discharge Plan: Home Plan to discharge in: 24 Hours Time Spent Managing Pts Care (In Minutes): 55
[2017-07-30] MEDS ORDERED: ATORVASTATIN 80 MG TAB PO SCH ×2 (14:00→21:00)
[2017-07-30] MEDS: ASPIRIN EC 81 MG TAB PO SCH (14:08)
--- NOTE | 2017-07-30 18:28 | RAD REPORT ---
EXAM DESCRIPTION: CTHead angio07/30/2017 2:48 pm CLINICAL HISTORY: cva COMPARISON: July 30, 2017 MRI TECHNIQUE: CT angiogram of the head was obtained. 50 cc Isovue 370 was intravenously. Coronal and sa gittal reconstruction was performed. All CT scans are performed using dose optimization technique as appropriate and may include automated exposure control or mA/KV adjustment according to patient size. FINDINGS: Most of the right internal carotid artery is occluded. The very distal right internal rebolledo tid artery is patent measuring 8 millimeters. The right A1 segment is patent. The right middle cerebr al artery is patent. The right middle cerebral artery is mildly diminished in caliber when compared t o the left the right A1 segment is also diminished in caliber when compared to the left The left anterior cerebral, left middle cerebral and posterior cerebral arteries are patent. An aneur ysm is not seen. IMPRESSION: Most of the visualized right internal carotid artery is occluded. 8 millimeters of the v jenni distal right internal carotid artery is patent.
[2017-07-30] MEDS ORDERED: TICAGRELOR 90 MG TABLET PO SCH (21:00)
--- NOTE | 2017-07-30 22:40 | CON ---
Reason For Consultation: Consultation called by Dr. Boogie because of stroke. History Of Present Illness: Mr. 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 Nagy, who c omes in with a stroke-like symptoms. The patient and his family, his and granddaughter provided information. 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 While they were pushing the car to check out, he began to feel lightheade d as though he may pass out. He seemed to stumble a bit and was unable to use the credit card proper ly, it actually fell from his hands as he tried to check out. He was able to check out and was jaymie mary to his car by some bystanders and the [facility] were contacted. The patient was brought into [facility]. There was some mild chest pain, but no shortness of breath. No n ausea or vomiting. He did not have focal neurological deficits. However, he did have the dizziness and the symptoms of inability to maintain his balance. His head CT scan at [facility] at 15 :54 showed mild atrophy and chronic ischemic change. No acute ischemic or hemorrhagic changes were i dentified. Subsequent brain MRI done the July 31 identified an acute nonhemorrhagic right basal gangl ia stroke measuring 9 x 6 mm. The study also identified occlusion or significantly slow flow that is almost no flow in the right internal carotid artery distal to the bulb. There was also estimated 89 % stenosis of the left carotid bulb. He did have a carotid artery ultrasound, which showed moderate stenosis involving the right internal carotid estimated 50% to 70% and moderate bilateral plaquing no mary in the carotids. Study did show the right ICA to CCA ratio of 3.6 consistent with a very decreas ed flow in the MR angiogram. The patient's echocardiogram report is pending. He has a CT angiogram and that too is pending. His electrocardiogram showed normal sinus rhythm with nonspecific T-wave ab normalities. His blood work revealed a normal complete blood count with differential, normal coagula tion panel, and chemistries were remarkable for very slightly elevated chloride of 112, otherwise nor mal liver function studies, normal kidney function. Creatine kinase is mildly elevated on admission. Normal CK-MB. Glucose ranged up to 122. LDL cholesterol 61, HDL 38, and TSH normal at 2.71. Urin alysis was negative and his chest x-ray showed no acute cardiopulmonary processes. The patient does note that since he received hydration, he feels he is really back to himself and that is different pr ior to getting up to the floor. Denies any deficits that are noticeable at this point, although he d id say there was some problem with his coordination. He did get up and ambulate with physical therap y and they could not identify any significant abnormalities and the speech evaluation did not show an y evidence of any aspiration as by bedside. Past Medical History: As indicated above. Past Surgical History: Cardiac stenting and neck surgery. Family History: Heart disease in father and diabetes mellitus as well. Social History: No alcohol, tobacco, or IV drug use. Home Medications: The patient was taking an aspirin and Plavix on a daily basis and is as per Dr. Jonathan cornell, now switched to aspirin and Brilinta and also on Norvasc 10 mg daily, Lipitor 80 mg at bedtime. He is now on Lovenox for DVT prophylaxis. Imdur 30 mg daily, Protonix 40 mg daily. Review of Systems: The patient denies any recent fevers or chills, nausea, vomiting, myalgias, arthralgias, headaches, w eight change. No rash. No psychiatric complaints. No gastrointestinal or genitourinary complaints. Allergies: NO KNOWN DRUG ALLERGIES. Physical Examination: Vital Signs: Blood pressure 163/77, pulse 86, respiratory rate 16, temperature 98.2, oxygen saturati on 98% on room air. Weight 234 pounds. Height 5 feet 11 inches. BMI 32. General: Mr. Osullivan is a 67-year-old patient, resting comfortably, getting an echocardiogram done. He is in no acute distress. HEENT: He is normocephalic, atraumatic. His sclerae are anicteric. Oropharynx is moist and pink. Neck: Supple. Chest: Clear. Heart: Regular. Extremities: Show no edema, cyanosis, or clubbing. Neurologic: Alert and oriented to person, place, time, and situation. Cranial nerves show no defici ts on 2 through 12. Motor examination, he has 5/5 strength proximally and distally in the upper and lower extremities. Sensory exam intact to light touch, temperature in the arms and legs. Coordinati on intact in the upper and lower extremities. Reflexes 1+ at the heels, 2+ at the patellae, and 1+ i n the upper extremities. Gait shows good stance, right arm swing. Assessment: Mr. Osullivan is a 67-year-old patient with a stroke and in setting of hypertension, dysli pidemia, and coronary artery disease along with a family history of cardiovascular disease. The antonino ent was likely dehydrated at the time of his stroke and had been as he indicated working [employer] when the event occurred. He was taking aspirin and Plavix when this occurred. Plan: 1.Switched the Plavix to Brilinta along with the aspirin. 2.Folate 1 mg daily. 3.The patient has a CT angiogram, the results will be followed and he also has an echocardiogram, th e results will be followed. 4.On discharge, the patient will likely benefit from further evaluation via a 4 vessel angiogram whi ch will be best done in [place], perhaps at [facility] or [facility]. He may benefit from an intervention for angioplasty and stenting in the neck or intracranial vessels. T his was discussed with the patient and his family. After his discharge and follow up in [place], he may be followed in my clinic in 1 month locally and for now, he may be discharged home once the CT an giogram is complete. ETHAN/ALISA Voice ID: [id number] Report ID: [id number]
[2017-07-31] MEDS: NA CHLORIDE 0.9% 1,000 ML IV SCH ×2 (03:52→08:50)
[2017-07-31] MEDS: ACETAMINOPHEN 500 MG TAB PO PRN (03:52)
[2017-07-31 06:36] LABS: Absolute Lymphocytes (CBC) 1.6 K/uL (0.7-4.9); Absolute Monocytes 0.5 K/uL (0.1-1.3); Absolute Neutrophil 3.9 K/uL (1.8-8.0); Basophils % 0.8 % (0-1.3); Eosinophils % 3.3 % (0-4.4); Hematocrit 39.8 % (39.6-49.0); MCH 30.1 pg (27.0-35.0); MCV 87.7 fL (80-100); MPV 8.3 fL (7.6-11.3); Magnesium 2.1 mg/dL (1.8-2.5); Monocytes % 7.8 % (3.3-12.3); Potassium 4.1 mEq/L (3.6-5.0); RBC Red Blood Cell Count 4.54 M/uL (4.33-5.43)
[2017-07-31] MEDS: PANTOPRAZOLE 40MG TABLET PO SCH (07:57)
--- NOTE | 2017-07-31 08:16 | ECHO ---
HEIGHT: 5 ft 11 in WEIGHT: 234 lb 6.4 oz DATE OF STUDY: 07/30/[address]: Joe Boogie DO 2-DIMENSIONAL: YES M.MODE: YES DOPPLER: YES COLOR FLOW: YES TDS: NO PORTABLE: NO DEFINITY: NO BUBBLE STUDY: NO DIAGNOSIS: NEAR SYNCOPE CARDIAC HISTORY: CATHERIZATION: YES SURGERY: NO PROSTHETIC VALVE: NO PACEMAKER: NO MEASUREMENTS (cm) DIASTOLIC (NORMALS) SYSTOLIC (NORMALS) IVSd 1.1 (0.6-1.2) LA Diam 4.2 (1.9-4.0) LVEF 62% LVIDd 4.9 (3.5-5.7) LVIDs 3.3 (2.0-3.5) %FS 33% LVPWd 1.3 (0.6-1.2) Ao Diam 3.2 (2.0-3.7) 2 DIMENSIONAL ASSESSMENT: RIGHT ATRIUM: NORMAL LEFT ATRIUM: DILATED RIGHT VENTRICLE: NORMAL LEFT VENTRICLE: NORMAL TRICUSPID VALVE: NORMAL MITRAL VALVE: NORMAL PULMONIC VALVE: NORMAL AORTIC VALVE: SCLEROSIS PERICARDIAL EFFUSION: NONE AORTIC ROOT: NORMAL LEFT VENTRICULAR WALL MOTION: NORMAL DOPPLER/COLOR FLOW: MILD AORTIC, MITRAL AND TRICUSPID REGURGITATION. NORMAL RIGHT VENTRICULAR SYSTOLIC PRESSURE. NO AORTIC STENOSIS. COMMENTS: NORMAL LEFT VENTRICULAR EJECTION FRACTION. DILATED LEFT ATRIUM. AORTIC SCERLOSIS WITH NO AORTIC STENOSIS. MILD AORTIC, MITRAL AND TRICUSPID REGURGITATION. TECHNOLOGIST: Digna CHANEY
--- NOTE | 2017-07-31 08:17 | CON ---
Date of Consultation: 07/30/[address] Boogie' service on 07/29/2017. I saw the patient on 07/30/2017. Reason For Consultation: Near syncope. History Of Present Illness: Mr. Osullivan is a 67-year-old white male, patient of Dr. Mian Nagy. Lina garza has had a recent stent in November 2016. He has dyslipidemia and hypertension. He was working outs [place]andro in the yard with concrete yesterday and had a near syncopal episode. Denied any chest pain. Had some dizziness, headaches, and weakness . No nausea, vomiting, diaphoresis, PND, orthopne a, pedal edema, palpitations. Allergies: NONE. Review of Systems: Negative. Social History: Negative. Family History: Positive for heart disease. Medications: At home include aspirin, Plavix, Lipitor, Imdur, Norvasc, Neurontin, amitriptyline. Physical Examination: Vital Signs: Stable. He was afebrile. HEENT: Negative. Neck: Supple without any bruit, lymphadenopathy, JVD. Abdomen: Benign. Extremities: Revealed no clubbing, cyanosis, or edema. Diagnostic Data: EKG showed nonspecific changes. CT of the head showed chronic ischemic changes. C hest x-ray is negative. EKG is unremarkable. Echo Doppler . Impression And Plan: It is remotely possible that Mr. Osullivan had stroke more likely to be related t o orthostatic hypotension secondary to his medication. His blood pressure right now is normal, but I would consider decreasing the Norvasc . I believe Dr. Boogie is investigating his carotid today. We will see the findings. He has an echocardiogram pending, but I cer tainly do not recommend any other workup at this point. His carotid stenosis needs to be followed up by Dr. Nagy on a yearly basis and I recommended that the patient take his records from here to Dr. Nagy including dyslipidemia and neuropathy seem to be stable at this point. I will discu ss the case further with Dr. Boogie. NB/MODL Voice ID: [id number] Report ID: [id number]
[2017-07-31] MEDS: ENOXAPARIN 40 MG/0.4 ML SQ SCH (08:50)
[2017-07-31] MEDS: ASPIRIN EC 81 MG TAB PO SCH (08:51)
[2017-07-31] MEDS: ISOSORBIDE MONO SR 30 MG TAB PO SCH (08:52)
[2017-07-31] MEDS ORDERED: TICAGRELOR 90 MG TABLET PO SCH (09:00)
[2017-07-31] MEDS ORDERED: ASPIRIN EC 81 MG TAB PO SCH (09:00)
[2017-07-31] MEDS ORDERED: AMLODIPINE 10 MG TAB PO SCH (09:00)
--- NOTE | 2017-07-31 14:11 | DS ---
Date of Discharge: 07/31/2017 Consultants: Dr. Smiley with Neurology, Dr. Goldstein with Cardiology. Admitting Diagnoses: 1.Near syncope. 2.Dehydration. 3.Heat exhaustion. 4.Hypertension. 5.Hyperlipidemia. 6.Coronary artery disease. 7.Chest pain. Discharge Diagnoses: 1.Acute cerebrovascular accident. MRI shows hemorrhagic cerebrovascular accident to the right basal ganglia. Now changed over to Brilinta, aspirin, and high-dose statin. 2.Left carotid stenosis. CT angiogram does show occlusion, however, did show an 8 mm some patency. The patient will need to follow up with interventional neurologist, Dr. Jameel Contreras per Dr. Smiley' s recommendation at [facility]. No need for emergent transfer. 3.Acute dehydration, resolved. 4.Near syncope secondary to cerebrovascular accident, resolved. Ambulating well. No need for physi pasha therapy or snf facility. 5.Heat exhaustion, improved with IV fluids. 6.Essential hypertension, stable. 7.Hyperlipidemia. We will adjust statin dose. 8.Coronary artery disease, [place] artery and [place] heart without angina, stable. 9.Chest pain, resolved, atypical. 10.Neuropathy. 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 The patient apparently was dehydrated. He was admitted to the hospit al for further evaluation. He was started on IV fluids with heat exhaustion and dehydration. His wo rkup was done, which showed blockage in his carotid arteries, 80% to 90% proximal right ICA. MRA and MRI were done to rule out any other pathology. MRA head did show acute nonhemorrhagic CVA in the ri t basal ganglia measuring 9 x 6 mm, occlusion or significant flow in the right internal carotid art jenni distal to the bulb, significant stenosis, left carotid bulb estimated 80% to 90%. CT angio head was done to further elucidate carotid artery disease, which shown to have right internal carotid herman ry occluded, 8 mm of the very distal right internal carotid artery is patent. No aneurysm was seen. The patient was seen by Dr. Smiley with Neurology. The patient's medications were adjusted. He w as switched over to Brilinta along with the aspirin. Further workup including echocardiogram was als o done, which showed normal ejection fraction. The patient was then doing better. He has no further near syncopal episodes, able to ambulate well. The patient was recommended to have a 4-vessel angio gram done at [facility] by Dr. Jameel Contreras, who is a neuro interventionalist as the patient ma y benefit from intervention for angioplasty and stenting in the neck or intracranial vessels. The pa tient was then cleared for discharge. His medications also included atorvastatin, which was increase d from 40 to 80 mg. The patient was also seen by Cardiology, Dr. Orr. The patient usually follo ws up with Dr. 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 The patient was doing well and therefore was cleared for discharge, and the patient was sent home in stable condition. Activity: As tolerated. Light duties. No strenuous activity for the next few days. Followup: Follow up with primary care physician in 2 to 3 days. Follow up with neurologist at [facility], Dr. Jameel Contreras in 2 weeks. Follow up with Dr. Smiley, local neurologist here in [place] in 1 month. Follow up with Dr. Goldstein or Dr. Orr in 2 weeks. Return to ER for worsening condit ion. Diet: Heart healthy. Total time spent discharging the patient was 39 minutes. Physical Examination: General: Awake, alert, oriented, no acute distress. CV: S1, S2. Respiratory: Moving air well bilaterally. Abdomen: Soft, nontender, and nondistended. Positive bowel sounds. Extremities: No clubbing, cyanosis, edema. Neurologic: Nonfocal. SA/MODL Voice ID: [id number] Report ID: [id number]
== END 2017-07-31 11:50 | disposition home or self-care (01) | DRG 66 ==
LOC: ER 14:46 → ERHOLD 17:15 → 2ND 19:25 → OBSVTOIN 07-30 13:48
PROVIDERS: ADMIT Family Medicine; ATTEND Family Medicine
DX: I63.9 Cerebral infarction, unspecified (principal); I65.22 Occlusion and stenosis of left carotid artery; E86.0 Dehydration; X30.XXXA Exposure to excessive natural heat, initial encounter; Y93.H3 Activity, building and construction; Y92.009 Unspecified place in unspecified non-institutional (private) residence as the place of occurrence of the external cause; E78.5 Hyperlipidemia, unspecified; I10 Essential (primary) hypertension; I25.10 Atherosclerotic heart disease of native coronary artery without angina pectoris; G62.9 Polyneuropathy, unspecified; R07.89 Other chest pain
CPT/HCPCS: 36415; 70450; 70496; 70544; 70549; 70553; 71045; 80048; 80061; 80076; 81003; 82550; 82553; 82962; 83735; 83880; 84439; 84443; 84484; 85025; 85610; 85730; 93005; 93306; 93880; 96360; 96361; 97163; 99285; A9577; G0378; J1650; J3475; J7030; Q9967